=== PATIENT | female | born 1960 | race Caucasian/White ===

== ENCOUNTER 2016-09-22 13:00 | Inpatient (IN) | payer OTHER ==
--- NOTE | ~2016-09-22 | PN ---
Unit #: [id number] #: [id number] Patient: SOFÍA SWIFT [id number] [facility] [address] [place] [address] [id number] I MR#: [id number] NAME: SOFÍA SWIFT. ROOM: P173 Age: 56 Sex: F Admission Date: 09/22/2016 : 1960 Attending Physician: Harpal Alvarez M.D. Admitting Physician: Harpal Alvarez M.D. Primary Care Physician: Primary Care Physician Oma WEEKS PROGRESS NOTES DATE 09/26/2016 DISCUSSION The patient continues to complain of dysphoric mood and some malingering suicidal ideation. Her detox is essentially complete. I have spoken with the patient today regarding expectations of inpatient care. Dictated by... Harpal Alvarez M.D. CB/bzg TD: 09/26/2016 14:19 JOB #: [id number] [facility] PROGRESS NOTES Page 1 of 1 X Harpal Alvarez MD PROGRESS NOTE
--- NOTE | ~2016-09-22 | PN ---
Unit #: [id number] #: [id number] Patient: SOFÍA SWIFT [id number] [facility] [address] [place] [address] [id number] MR#: [id number] NAME: SOFÍA SWIFT. ROOM: P173 Age: 56 Sex: F Admission Date: 09/22/2016 : 1960 Attending Physician: Harpal Alvarez M.D. Admitting Physician: Harpal Alvarez M.D. Primary Care Physician: Primary Care Physician Oma WEEKS PROGRESS NOTES DATE 09/24/2016 DISCUSSION The patient voices no new complaints today apart from stating that she feels bed like headed. She remains hopeless and dysphoric related to her homelessness situation. Continues to endorse positive suicidal ideation. She states that her relapse on heroin was a brief one and we will discontinue her detoxification protocol. I will add vistaril on a p.r.n. basis for insomnia for anxiety. Dictated by... Harpal Alvarez M.D. CB/allison TD: 09/25/2016 02:43 JOB #: [id number] [facility] PROGRESS NOTES Page 1 of 1 X Harpal Alvarez MD PROGRESS NOTE
--- NOTE | ~2016-09-22 | HP ---
Unit #: [id number] #: [id number] Patient: GÉNESIS SWIFT [id number] [place] [address] [id number] I MR#: [id number] NAME: GÉNESIS SWIFT. ROOM: P173 Age: 56 Sex: F Admission Date: 09/22/2016 : 1960 Attending Physician: Harpal Alvarez M.D. Admitting Physician: Harpal Alvarez M.D. Primary Care Physician: Primary Care Physician No HISTORY AND PHYSICAL HISTORY OF PRESENT ILLNESS Génesis is a 56-year-old female admitted on 09/22/2016 to [facility] for detox from heroin. PAST MEDICAL HISTORY Chronic migraine, fibromyalgia, depression, and anxiety. PAST SURGICAL HISTORY Bilateral tubal ligation and right bunionectomy. SOCIAL HISTORY No tobacco or alcohol use. Does report daily use of heroin and occasional marijuana. She is currently and homeless. FAMILY HISTORY Noncontributory. REVIEW OF SYSTEMS CONSTITUTIONAL: No fever or chills. HEENT: Denies any sore throat, ear pain or runny nose. CARDIOVASCULAR: Denies chest pain, irregular heart rhythm or palpitations. CHEST: Denies shortness of breath or cough. No hemoptysis. GASTROINTESTINAL: Denies nausea, vomiting, diarrhea or chronic constipation. ENDOCRINE: Denies history of increased thirst or urination. No recent significant weight loss or gain. GENITOURINARY: Denies dysuria, frequency, or hematuria. SKIN: Denies any rashes. HEMATOLOGIC: Denies history of increased bleeding or bruising. MUSCULOSKELETAL: Denies any hot, swollen joints. No generalized muscle pain. NEUROLOGIC: Denies problems with vision or speech. No frequent, severe headaches. No numbness, tingling or weakness in any extremities. Denies loss of bladder or bowel control. CURRENT MEDICATIONS Tizanidine, Topamax, Abilify, Savella, gabapentin, and Treximet. ALLERGIES Prochlorperazine, Benadryl, and Compazine. PHYSICAL EXAMINATION GENERAL: Alert, oriented, no acute distress. Unit #: [id number] #: [id number] Patient: GÉNESIS SWIFT VITAL SIGNS: Blood pressure 122/78, heart rate 68. HEIGHT: 5 foot 8. WEIGHT: 200 pounds. SKIN: Warm, dry. No rashes or lesions, track adkins, cuts, etc. HEENT: Normocephalic. TMs not viewed. Oronasal passages clear. Conjunctivae clear. PERRLA. EOM is intact. NECK: No lymphadenopathy or thyromegaly. HEART: Regular rate and rhythm. No murmur, gallop, or rub. LUNGS: Clear to auscultation bilaterally. ABDOMEN: Soft, nontender without palpable masses or hepatosplenomegaly. : Not assessed. EXTREMITIES: No evidence of cyanosis, clubbing, or edema. Moves all extremities independently without obvious deficit. NEUROLOGICAL: Grossly within normal limits. Cranial Nerves: II: Visual sol are intact. III, IV AND : Extraocular movements are intact. Pupils are equal, round and reactive to light. V: Facial sensation is grossly normal. VII: Facial movements and expression are normal. VIII: Auditory acuity grossly intact. IX, X: Uvula is midline. Phonation is normal. XI: Patient shrugs shoulders and turns head normally. XII: Tongue protrudes in the midline. Sensory and Motor Function: Sensory and motor sensation is grossly normal. Motor: moves all extremities well. Coordination: Gait is normal. Deep Tendon Reflexes: Intact. IMPRESSION 1. Psychiatric admission. 2. Chronic migraines. 3. Fibromyalgia. 4. Depression. 5. Anxiety. RECOMMENDATIONS PSYCHIATRIC: Per psychiatrist. MEDICAL: No contraindication to participate in this facility's activities. MEDICAL PROGNOSIS Good. MEDICAL CONDITION Stable. Dictated by... Remi GrissomRNain Benitez TD: 09/23/2016 15:56 JOB #: [id number] Unit #: [id number] #: [id number] Patient: GÉNESIS SWIFT HISTORY AND PHYSICAL Page 1 of 1 X SHERWIN NELSON APRN HISTORY AND PHYSICAL
--- NOTE | ~2016-09-22 | CO ---
Unit #: [id number] #: [id number] Patient: GÉNESIS SWIFT [id number] [place] [address] [id number] MR#: [id number] NAME: GÉNESIS SWIFT. ROOM: P173 Age: 56 Sex: F Admission Date: 09/22/2016 : 1960 Attending Physician: Harpal Alvarez M.D. Primary Care Physician: Primary Care Physician No Consultation Date: 09/26/2016 CONSULTATION REPORT SUBJECTIVE Génesis is a 56-year-old, admitted because of her illicit drug use. She was detoxing heroin. We were asked to see her for abnormal labs, which included potassium level of 5.4. She is on no potassium supplements. Repeat labs on 09/27/2016 showed potassium 5.2. DIAGNOSTIC STUDIES BUN/creatinine 34/1.1 and eGFR of 56.1. Liver enzymes were also elevated and hepatitis C profile was positive as documented labs from 2016. ASSESSMENT Renal insufficiency, very likely dehydration. PLAN Encourage fluids. Recheck labs in 24 hours. The patient will need to follow up with PCP. Dictated by... Susan Bowden P.A.-C. for Flynn Rangel/darline TD: 09/27/2016 21:32 JOB #: [id number] CONSULTATION REPORT Page 1 of 1 X Susan Bowden CONSULTATION REPORT
--- NOTE | ~2016-09-22 | DS ---
Unit #: [id number] #: [id number] Patient: SOFÍA SWIFT [id number] [facility] [address] [place] [address] [id number] I MR#: [id number] NAME: SOFÍA SWIFT. ROOM: P173 Age: 56 Sex: F Admission Date: 09/22/2016 : 1960 Discharge Date: 09/27/2016 Attending Physician: Harpal Alvarez M.D. Primary Care Physician: Primary Care Physician No DISCHARGE SUMMARY REASON FOR ADMISSION The patient is a 56-year-old, , white female, admitted to the [facility] unit after recurrence abuse of heroin and increasing depression. HOSPITAL COURSE The patient was admitted to the [facility] unit and placed on routine detoxification protocol for opioids. She was continued on previously prescribed home medications including tizanidine, Topamax, Abilify, Savella, gabapentin, Ativan, and Treximet. The patient's detox was an uneventful one and her mood seemed to improve during her brief stay in the hospital with reduction in suicidal ideation noted. By 09/27/2016, the patient requested discharge and it was so ordered. She was at that time agreeable to plan for followup through the auspices of the chemical dependency intensive outpatient program and community mental health resources. FINAL DIAGNOSES Opioid use disorder; fibromyalgia; migraine headache; mood disorder, unspecified. DISPOSITION ON DISCHARGE The patient is discharged on the following medications: Abilify 10 mg b.i.d. for mood stabilization, Vistaril 50 mg q.6 hours p.r.n. anxiety, Zanaflex 2 mg b.i.d. for muscle relaxation, Topamax 50 mg at bedtime for migraine headache, Neurontin 600 mg t.i.d. for migraine headache, Treximet one tablet daily reason unknown, Savella 50 mg at bedtime for fibromyalgia. DISCHARGE INSTRUCTIONS No dietary or physical restrictions were placed upon the patient at the time of discharge. FOLLOWUP Followup will take place through the auspices of community mental health resources and the chemical dependency intensive outpatient program provided by this facility. PROGNOSIS The patient's prognosis is considered fair. Dictated by... Harpal Alvarez M.D. Unit #: [id number] #: [id number] Patient: SOFÍA SWIFT CB/darline TD: 09/27/2016 13:49 JOB #: [id number] DISCHARGE SUMMARY Page 1 of 1 X Harpal Alvarez MD DISCHARGE SUMMARY
--- NOTE | ~2016-09-22 | PN ---
Unit #: [id number] #: [id number] Patient: SOFÍA SWIFT [id number] [facility] [address] [place] [address] [id number] I MR#: [id number] NAME: SOFÍA SWIFT. ROOM: P173 Age: 56 Sex: F Admission Date: 09/22/2016 : 1960 Attending Physician: Harpal Alvarez M.D. Admitting Physician: Harpal Alvarez M.D. Primary Care Physician: Primary Care Physician Oma RAMIREZ NOTES DATE 09/25/2016 DISCUSSION The patient is active within the therapeutic milieu. She remains dysphoric but reports ____ and suicidal ideation and exhibits little in the way of signs or symptoms of withdrawal. I have discussed post discharge treatment options with her during today's interview. Dictated by... Harpal Alvarez M.D. CB/allison TD: 09/25/2016 11:41 JOB #: [id number] [facility] PROGRESS NOTES Page 1 of 1 X Harpal Alvarez MD PROGRESS NOTE
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
[~2016-09-22 13:00] MED LIST: ABILIFY10 MG PO; ABILIFY5 MG PO; ALPRAZOLAM PO; ALPRAZOLAM1 MG PO; AMITRYPTYLINE PO; AMOXICILLIN500 M1 PO; ATIVAN0.5 MG PO; AVINZA PO; CYMBALTA; FROVA2.5 MG PO; IMITREX PO; KLONOPIN1 MG PO; LIDODERM30 EA TOP; LISINOPRIL PO; LORTAB 10-3251 EACH PO; LORTAB 10/500 T1 TAB PO; MEDROL DOSEPAK4 MG PO; MIGRANAL NS; NO MEDICATIONS; OXYCODON HCL-AP1 TA2 PO; PERCOCET 10/3251 TAB PO; PERIDEX480 ML PO; PHENERGAN; PHENERGAN25 M1 PO; PHENERGAN25 MG PO; PREDNISONE PO; PRISTIQ PO; RELPAX40 MG PO; REQUIP5 MG PO; SAVELLA100 MG PO; SAVELLA50 MG PO; SEROQUEL XR50 MG PO; SEROQUEL50 M1 PO; SEROQUEL50 MG PO; SERTRALINE HCL100 M1 PO; SERTRALINE HCL100 MG PO; STADOL; TEMAZEPAM; TEMAZEPAM PO; TOPAMAX PO; TOPAMAX50 MG PO; TOPIRAGEN100 MG PO; TREXIMET 85-5001 TAB PO; VALTREX PO; VIMPAT150 MG PO; VITAMIN D1000 UNI1 PO; VOLTAREN100 GM TOP; VOLTAREN100 GM TP; VOLTAREN50 MG PO; VOLTAREN75 MG PO; WELLBUTRIN PO; ZANAFLEX PO; ZANAFLEX4 M1 PO; ZOLOFT100 MG PO; ZOLOFT50 MG PO; ZYVOX600 MG PO; [UNRECOGNIZED DRUG - OTHER] PO
[2016-09-24 11:54] LABS: URINE APPEARANCE TURBID; URINE BILIRUBIN NEG (NEG); URINE BLOOD NEG (NEG); URINE COLOR DK YELLOW; URINE GLUCOSE NEG (NEG); URINE KETONE NEG (NEG); URINE LEUKOCYTE ESTERASE 2+ (NEG); URINE NITRATE NEG (NEG); URINE PH 5.5 (5-8); URINE PROTEIN NEG (NEG); URINE SPECIFIC GRAVITY 1.017 (1.003-1.035)
[2016-09-24 11:57] LABS: U HYALINE CASTS AUWI 0-2 /[LPF]; URBCS1 AUWI 0-2 /[HPF] (0-2); URINE BACTERIA AUWI NEG (NEGATIVE); URINE SQUAMOUS EPITHELIAL CELL OCC /[HPF]
[2016-09-24 12:32] LABS: AMPHETAMINE NEG (NEG); BARBITURATES POS (NEG); BENZODIAZEPINES NEG (NEG); COCAINE NEG (NEG); MARIJUANA POS (NEG); OPIATES NEG (NEG); TRICYCLIC ANTIDEPRESSANTS NEG (NEG); U METHADONE NEG (NEG)
[2016-09-26 09:47] LABS: BASOPHIL# 0.1 X10e3 (0-0.3); BASOPHIL% 1.2 % (0-2.5); DIFF IND NO; EOSINOPHIL# 0.3 X10e3 (0-0.7); EOSINOPHIL% 5.3 % (0.0-7.0); HEMATOCRIT 38.8 % (35.0-45.0); HEMOGLOBIN 12.6 gm/dL (12.0-16.0); LYMPHOCYTE# 2.7 X10e3 (1.0-3.5); LYMPHOCYTE% 45.7 % (17.0-45.0); MEAN CELL VOLUME 99.5 FL (83-96); MEAN CORPUSCULAR HEMOGLOBIN 32.3 PG (28-34); MEAN CORPUSCULAR HGB CONC 32.4 g/dL (30-36); MONOCYTE# 0.5 X10e3 (0-1.0); MONOCYTE% 8.2 % (3.0-12.0); NEUTROPHIL# 2.3 X10e3 (1.5-7.1); NEUTROPHIL% 39.6 % (40-75); PLATELET COUNT 135 X10e3 (140-420); RED CELL DISTRIBUTION WIDTH 14.8 % (11.0-15.5); WHITE BLOOD COUNT 5.9 X10e3 (4.0-10.5)
[2016-09-26 10:12] LABS: ALBUMIN SERUM 3.9 g/dL (3.5-5.0); BILIRUBIN,TOTAL 0.9 mg/dL (0.2-2.0); CALCIUM SERUM 9.5 mg/dL (8.4-10.2); CREATININE SERUM 1.2 mg/dL (0.6-1.4); GLOM FILT RATE Estimated 50.5 mL/min (>60); POTASSIUM 5.4 mmol/L (3.5-5.1); PROTEIN TOTAL SERUM 7.5 g/dL (6.0-8.3)
[2016-09-27 09:52] LABS: BUN/CREATININE RATIO 30.9; CALCIUM SERUM 9.5 mg/dL (8.4-10.2); CREATININE SERUM 1.1 mg/dL (0.6-1.4); GLOM FILT RATE Estimated 56.1 mL/min (>60); POTASSIUM 5.2 mmol/L (3.5-5.1)
[2016-10-01 09:50] LABS: HA AB IGM (HEPPAN) Nonreactive (()); HB CORE AB IGM (HEPPAN) Nonreactive (Nonreactive); HB S AG (HEPPAN) Nonreactive (Nonreactive); HEP C AB (HEPPAN) Reactive (Nonreactive)
== END 2016-09-27 14:20 | DRG 897 ==
LOC: P1E 16:01
PROVIDERS: Physician Assistant Medical; Specialist
PROC: HZ2ZZZZ Detoxification Services for Substance Abuse Treatment (ICD-10-PCS; principal; 2016-09-23)
DX: F11.20 Opioid dependence, uncomplicated (principal); F39 Unspecified mood [affective] disorder; E86.0 Dehydration; G43.909 Migraine, unspecified, not intractable, without status migrainosus; M79.7 Fibromyalgia; F41.9 Anxiety disorder, unspecified; Z98.51 Tubal ligation status; N28.9 Disorder of kidney and ureter, unspecified
CPT/HCPCS: 80048; 80053; 80074; 80307; 81003; 85025; 86592